=== PATIENT | male | born 1995 | race Caucasian/White ===

== ENCOUNTER 2020-02-24 10:02 | Emergency (ER) | payer OTHER ==
[~2020-02-24] VITALS: Ht 172.7 cm; Wt 102.1 kg
[2020-02-24] MEDS ORDERED: METPRE4DP PO (10:55)
== END 2020-02-24 11:06 | disposition home or self-care (01) ==
LOC: ER 10:02
DX: L23.7 Allergic contact dermatitis due to plants, except food (principal)
CPT/HCPCS: 96372; 99283-25; J1100